=== PATIENT | female | born 1975 | race Asian ===

== ENCOUNTER 2025-07-27 12:19 | Outpatient (CLI) | payer OTHER | END 2025-07-27 12:20 | disposition home or self-care (01) | LOC: CSHMAMMO 12:19 | PROVIDERS: ATTEND Student in an Organized Health Care Education/Training Program | DX: Z12.31 Encounter for screening mammogram for malignant neoplasm of breast (principal); R92.333 Mammographic heterogeneous density, bilateral breasts | CPT/HCPCS: 77063; 77067 ==

== ENCOUNTER 2025-08-17 06:36 | Day surgery (SDC) | payer OTHER ==
[2025-08-06 11:12] VITALS: BMI 26.7
[2025-08-17] MEDS ORDERED: Lidocaine 1% PF 5 ML VIAL ONE (08:22)
[2025-08-17] MEDS ORDERED: PROPOFOL 40 ML ONE (08:22)
[2025-08-17] MEDS ORDERED: PHENYLEPHRINE-NS 100 MCG/ML 10 ML SYRINGE ONE (08:47)
== END 2025-08-17 09:55 | disposition home or self-care (01) ==
LOC: CSHSDC 06:36
PROVIDERS: ATTEND Surgery
PROC: 0DBP8ZZ Excision of Rectum, Via Natural or Artificial Opening Endoscopic (ICD-10-PCS; principal; 2025-08-17)
PROC: 0DBH8ZZ Excision of Cecum, Via Natural or Artificial Opening Endoscopic (ICD-10-PCS; principal; 2025-08-17)
DX: Z12.11 Encounter for screening for malignant neoplasm of colon (principal); D12.8 Benign neoplasm of rectum; K52.9 Noninfective gastroenteritis and colitis, unspecified; K64.2 Third degree hemorrhoids; Z90.710 Acquired absence of both cervix and uterus
CPT/HCPCS: 88305; J2704